=== PATIENT | female | born 2000 | race Caucasian/White ===

== ENCOUNTER 2025-01-03 11:50 | Emergency (ER) | payer OTHER, SELFPAY ==
[2025-01-03] VITALS (9 sets, daily range): BP systolic 118–133; BP diastolic 54–86; BMI 28.5
[2025-01-03] MEDS: NSS 1000 IV (12:49)
[2025-01-03 13:04] LABS: % Basophils 0.4 % (0-2); % Eosinophils 1.4 % (0-6); % Immature Granulocytes 0.3 % (0-0.5); % Lymphocytes 24.7 % (20.5-51.1); % Monocytes 7.2 % (1.7-9.3); Absolute Eosinophils 0.1 10^3/uL (0-0.7); Absolute Lymphocytes 1.8 10^3/uL (1.2-3.4); Absolute Monocytes 0.5 10^3/uL (0.1-0.6); Absolute Neutrophils 4.8 10^3/uL (1.4-6.5); Hematocrit 43.5 % (37.0-47.0); Hemoglobin 15.1 g/dL (12.0-16.0); Mean Corp Hgb Conc. 34.7 g/dL (33.0-37.0); Mean Corpuscular Hgb 31.2 pg (27.0-31.0); Mean Corpuscular Volume 89.9 fL (81.0-99.0); Mean Platelet Volume 11.2 fL (7.4-10.4); Nucleated Red Blood Cells % 0 %; Platelet Count 181 10^3/uL (130-400); Red Blood Cell Count 4.84 10^6/uL (4.20-5.40); Red Cell Dist. Width 11.9 % (11.5-14.5); White Blood Cell Count 7.3 10^3/uL (4.8-10.8)
[2025-01-03 13:09] LABS: D-Dimer < 0.27 ug/mlFEU (0.00-0.50)
--- NOTE | 2025-01-03 13:09 | ED.GENMED ---
History of Present Illness
General
Chief Complaint: Chest Pain
Source: patient
Exam Limitations: none
Time Seen by Provider: 01/03/25 12:27
History of Present Illness
History of Present Illness:
24-year-old female transitioning to male on testosterone presents complaining of rapid heart rate. There was lightheadedness. There is a family history of atrial tachycardias. He was feeling lightheaded and a rapid heart rate in the car any
performed a Valsalva maneuver and he states that the rapid heart rate did resolve. He still feels somewhat lightheaded. He denies any chest pain. He denies shortness of breath. No leg swelling or calf pain.
Past History
Social History
Tobacco: Non-smoker
Alcohol: None
Drug: None
Phy Exam
Physical Exam
Physical Exam:
General: Well-appearing no acute respiratory distress HEENT: Normocephalic atraumatic
Heart: Regular rate and rhythm no murmurs
Lungs: Clear no wheeze
Abdomen is soft nontender nondistended no guarding or rebound
Extremities: No cyanosis or edema no calf tenderness
Scores
Heart Score for Chest Pain Patients
STEMI patient?: No
History: Slightly or Non-Suspicious
ECG: Normal
Age: </= 45 years
Risk Factors: No Risk Factors
Troponin: </= Normal Limit
Heart Score for Chest Pain Patients: 0
Heart Score Risk: 2.5% MACE over next 6 weeks
Course
Orders/Labs/Results
Orders:
Orders
01/03/25 11:51
EKG [Electrocardiogram (*1)] Urgent
Reason for Study: Chest Pain
01/03/25 11:52
EKG- Treatment ONCE
01/03/25 12:40
Complete Blood Count/With Diff Urgent
Comprehensive Metabolic Panel Urgent
D-Dimer Urgent
TSH Reflex To Free T4 Urgent
01/03/25 12:49
0.9% Sodium Chloride 1000 ml [Nss] 1,000 ml IV BOLUS
01/03/25 13:45
CR Chest - 2 Views Urgent
Comment:
Reason For Exam: chest pain
01/03/25 13:54
Troponin I Urgent
Abnormal Lab Results
01/03/25
12:40
MCH 31.2 H pg
(27.0-31.0)
MPV 11.2 H fL
(7.4-10.4)
01/03/25 12:40
01/03/25 12:40
Vital Signs
Initial and Last Documented VS:
Initial Vital Signs
Temp Pulse Resp BP Pulse Ox
98.5 F 83 16 126/54 99
01/03/25 11:57 01/03/25 11:57 01/03/25 11:57 01/03/25 11:57 01/03/25 11:57
Last Documented Vital Signs
Temp Pulse Resp BP Pulse Ox
98.5 F 84 16 130/86 100
01/03/25 11:57 01/03/25 14:30 01/03/25 14:00 01/03/25 14:30 01/03/25 14:30
MDM/Problems Addressed
Differential Diagnosis Includes:
Palpitations with rapid heart rate. This seemed to improve after a Valsalva maneuver was performed. She is currently on normal sinus rhythm on the monitor EKG shows sinus rhythm. Will check labs including electrolytes and D-dimer given the
exogenous hormones.
*Critical Care Note
Total Time (30-74mins, 75-104mins- exclusive of procedures): Not Applicable
Update Note
Update Note:
Troponin and D-dimer negative. Chest x-ray clear. No further arrhythmias. Recommend follow-up with family doctor and/or cardiology
ED Attending Note
-
Portions of this chart may have been created with voice recognition software.� Occasional wrong word or��sound alike� substitutions may have occurred due to the inherent limitations of voice recognition software.
Discharge Plan
Departure
Patient Disposition: Home (Routine Discharge)
Date of Disposition: 01/03/25
Time of Disposition: 14:48
Patient with high blood pressure during this ER visit?: No
Discharge Problem:
Heart palpitations
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
Prescriptions:
No Action
ondansetron 4 MG tablet,disintegrating
4 mg PO TIDPRN PRN (Reason: NAUSEA) Qty: 20 0RF
clonidine HCl 0.1 MG tablet
0.1 mg PO HSPRN PRN (Reason: sleep)
desmopressin 0.2 MG tablet
0.2 mg PO BID
sertraline 100 MG tablet
200 mg PO DAILY
verapamil 180 MG tablet extended release
180 mg PO HS
methylphenidate HCl 20 MG tablet extended release
20 mg PO DAILY
fluticasone propionate [Flovent HFA] 1 PUFF HFA aerosol inhaler
2 puff inhalation BIDPRN PRN (Reason: asthma)
albuterol sulfate [ProAir HFA] 8.5 GM HFA aerosol inhaler
8.5 gm IH PRN PRN (Reason: asthma)
fludrocortisone 0.1 MG tablet
0.2 mg PO DAILY
Sodium Tabs
1 tab PO TID
ferrous sulfate [Iron (ferrous sulfate)] 325 MG tablet
325 mg PO BID
Referrals:
Michael Zamudio DO [Family Provider] -
Activity Restrictions/Additional Instructions:
Please follow-up with your family doctor and/or rubber mixer for further evaluation and consideration of Holter monitoring
Interventions
Interventions:
*Risk Screen - Suicide Last Done: 01/03/25 11:57
*General Assessment Last Done: 01/03/25 12:22
*Neglect/Abuse Screening Last Done: 01/03/25 11:57
*ED- Fall Risk Assessment Last Done: 01/03/25 12:22
ED- Cardiac Assessment Last Done: 01/03/25 12:22
Discharge Date and Time
Print Language: PAKISTANI
[2025-01-03 13:11] LABS: ALT (SGPT) 26 U/L (0-35); AST (SGOT) 26 U/L (14-36); Albumin 4.4 g/dl (3.5-5.0); Alkaline Phosphatase 93 U/L (38-126); Blood Urea Nitrogen 14 mg/dl (7-17); Calcium 9.2 mg/dl (8.4-10.2); Carbon Dioxide 28 mmol/L (22-30); Chloride 105 mmol/L (98-107); Estimated Creatinine Clearance 100 ml/min; Glucose 94 mg/dl (70-99); Potassium 4.5 mmol/L (3.5-5.1); Sodium 139 mmol/L (135-145); Total Bilirubin 0.6 mg/dl (0.2-1.3); Total Protein 6.5 g/dl (6.3-8.2); eGFR > 60.00
[2025-01-03 13:42] LABS: TSH Reflex To Free T4 1.34 uIU/ml (0.47-4.68)
[2025-01-03 14:25] LABS: Troponin I < 0.012 ng/ml
== END 2025-01-03 14:57 | disposition home or self-care (01) ==
LOC: EMR 11:50
PROVIDERS: Physician Assistant; EMERGENCY PHYSICIAN Student in an Organized Health Care Education/Training Program; FAMILY PHYSICIAN Internal Medicine
DX: R00.2 Palpitations (principal)
CPT/HCPCS: 99283; 96360; 71046; 80053; 84443; 84484; 85025; 85379; 93005